=== PATIENT | female | born 1935 | race Caucasian/White ===

== ENCOUNTER 2017-07-04 07:16 | Day surgery (SDC) | payer MEDICARE, OTHER ==
[~2017-07-04 07:16] MED LIST: ACETAMINOPHEN 325 MG TAB PO; PHENYLEPHRINE HCL 10 % OPHTH. SOL 5ML OS; PROPARACAINE 0.5% OPHTH SOL 15ML OS
[2017-07-04] MEDS: CYCLOPENTOLATE 2% OPHTH SOLN 2ML BTL OS (07:35)
[2017-07-04] MEDS: PHENYLEPHRINE 2.5% OPHTH SOL 2ML OS (07:40)
[2017-07-04] MEDS: TROPICAMIDE 1% OPHTH SOLN 2ML OS (07:40)
[2017-07-04] MEDS: LIDOCAINE 3.5 % 1ML OPHTH TOPICAL GEL OU (07:40)
[2017-07-04] MEDS ORDERED: MIDAZOLAM INJ 2 MG/2 ML VIAL (J2250) As Ordered (08:34)
[2017-07-04] MEDS ORDERED: fentaNYL 100 MCG/2 ML INJECTION (J3010) As Ordered (08:34)
[2017-07-04] MEDS: CEFUROXIME 1MG/0.1ML INTRACAMERAL INJ As Ordered (08:44)
[2017-07-04] MEDS: POVIDONE-IODINE 5% OPHTH PREP SOL 30ML As Ordered (08:44)
[2017-07-04] MEDS: LIDOCAINE 1% SDV 5 ML VIAL As Ordered (08:44)
[2017-07-04] MEDS: HEALON DUET (HEALON 10MG/ML 0.55ML & HEALON ENDOCOAT 30MG/ML 0.85ML) As Ordered ×2 (08:44)
[2017-07-04] MEDS: BALANCED SALT IRRIGATION SOLUTION 500ML BAG (FOR OR EYE MACHINE) As Ordered (08:44)
[2017-07-04] MEDS: KETOROLAC 0.5% OPHTH SOLN OS (09:30)
[2017-07-04] MEDS ORDERED: TRIMETHOBENZAMIDE 300 MG CAP PO (09:30)
== END 2017-07-04 09:45 | disposition home or self-care (01) ==
LOC: M SDC 07:16
DX: H25.12 Age-related nuclear cataract, left eye (principal); I10 Essential (primary) hypertension; H40.9 Unspecified glaucoma; M85.80 Other specified disorders of bone density and structure, unspecified site; M19.90 Unspecified osteoarthritis, unspecified site; Z88.1 Allergy status to other antibiotic agents; Z88.2 Allergy status to sulfonamides; Z88.8 Allergy status to other drugs, medicaments and biological substances; Z79.899 Other long term (current) drug therapy; Z79.82 Long term (current) use of aspirin; Z87.891 Personal history of nicotine dependence
CPT/HCPCS: 66984

== ENCOUNTER 2017-08-13 06:01 | Day surgery (SDC) | payer MEDICARE, OTHER ==
[~2017-08-13 06:01] MED LIST changes: -PHENYLEPHRINE HCL 10 % OPHTH. SOL 5ML OS; -PROPARACAINE 0.5% OPHTH SOL 15ML OS
[2017-08-13] MEDS: LIDOCAINE 3.5 % 1ML OPHTH TOPICAL GEL OU (06:30)
[2017-08-13] MEDS ORDERED: MANNITOL 20% BAG 250 ML IV (07:00)
[2017-08-13] MEDS ORDERED: MIDAZOLAM INJ 2 MG/2 ML VIAL (J2250) As Ordered (07:07)
[2017-08-13] MEDS ORDERED: fentaNYL 100 MCG/2 ML INJECTION (J3010) As Ordered (07:07)
[2017-08-13] MEDS ORDERED: DILUENT IV (07:09)
[2017-08-13] MEDS ORDERED: MANNITOL IV (07:09)
[2017-08-13] MEDS ORDERED: MAXITROL OPHTH OINT 3.5 GM As Ordered (07:12)
[2017-08-13] MEDS: OFLOXACIN 0.3 % (OCUFLOX) OPTH SOL 5ML OS (07:25)
[2017-08-13] MEDS: LIDOCAINE PRES-FREE 2% 10ML AMP As Ordered (07:58)
[2017-08-13] MEDS: BALANCED SALT IRRIGATION SOL 500ML GLASS BOTTLE (FOR OR EYE COMPOUND) As Ordered (07:59)
[2017-08-13] MEDS: mitoMYcin 0.2 MG/VIAL KIT FOR OPHTHALMIC USE (J7315 PER 0.2MG) As Ordered (07:59)
[2017-08-13] MEDS: LIDOCAINE 2% W/EPIN INJ 20ML **PRES FREE As Ordered (07:59)
[2017-08-13] MEDS: POVIDONE-IODINE 5% OPHTH PREP SOL 30ML As Ordered (08:00)
[2017-08-13] MEDS ORDERED: TRIMETHOBENZAMIDE 300 MG CAP PO (09:30)
[2017-08-13] MEDS ORDERED: ONDANSETRON 4MG/2ML VIAL (J2405) IV (09:30)
== END 2017-08-13 09:27 | disposition home or self-care (01) ==
LOC: M SDC 06:01
DX: H40.10X0 Unspecified open-angle glaucoma, stage unspecified (principal); Z88.2 Allergy status to sulfonamides; Z79.82 Long term (current) use of aspirin; Z79.899 Other long term (current) drug therapy
CPT/HCPCS: 66183